=== PATIENT | male | born 1950 | race American Indian/Alaskan Native ===

== ENCOUNTER 2025-02-04 15:31 | Emergency (ER) | payer MEDICARE, OTHER, SELFPAY ==
[2025-02-04] VITALS (15 sets, daily range): BP systolic 121–181; BP diastolic 57–80; PULSE 74–94; RESP 16–18; TEMP 36.8; O2SAT 92–99; BMI 38.4
--- NOTE | 2025-02-04 15:58 | EKG_ITS ---
[place] [id number] [place] [id number] Test Date: 2025-02-04 Pat Name: Mauricio Montgomery Department: [facility] Room: Gender: Male Horticultural Manager: ZULMA : 1950 Requested By: Order Number: [id number] Reading MD: Edson Rubin Measurements Intervals [place] Rate: 83 P: 10 TX: 144 QRS: -6 QRSD: 80 T: -3 QT: 356 QTc: 418 Interpretive Statements Sinus rhythm with premature atrial complexes Electronically Signed On 02-06-2025 17:25:58 PDT by Edson Rubin
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
[2025-02-04] MEDS: HYDROCODONE/ACET 5/325 TABLET 1 TAB PO (18:14)
[2025-02-04 20:00] LABS: Add Manual Diff / Slide Review NO; Basophils Absolute Auto 100 /uL (0-100); Basophils Percent Auto 0.6 % (0-2); Eosinophils Absolute Auto 100 /uL (0-450); Eosinophils Percent Auto 1.4 % (2-4); Hematocrit 39.4 % (41-53); Hemoglobin 13.1 g/dL (13.5-17.5); Lymphocytes Absolute Auto 700 /uL (1100-4500); Lymphocytes Percent Auto 8.7 % (25-40); Mean Corpuscular HGB Conc 33.3 % (30-36); Mean Corpuscular Hemoglobin 28.7 PG (26-34); Mean Corpuscular Volume 86.1 fL (80-100); Monocytes Absolute Auto 500 /uL (0-900); Monocytes Percent Auto 6.7 % (3-14); Neutrophils Absolute Auto 6500 /uL (1500-7000); Neutrophils Percent Auto 82.6 % (50-75); Platelet Count 308 X10^3/uL (150-400); Red Blood Cell Count 4.58 X10^6/uL (4.5-5.9); Red Cell Distribution Width 15.3 % (11.6-14.8); White Blood Cell Count 7.9 X10^3/uL (4.5-11.0)
[2025-02-04 20:08] LABS: Prothrombin Time 11.4 SECONDS (9.4-12.5)
[2025-02-04 20:10] LABS: PTT Partial Thromboplastin Tim 38 SECONDS (25.1-36.5)
--- NOTE | 2025-02-04 20:10 | PC.NURSE ---
This TIP PUNCHER asked the patient if they are able to do an ambulation trial. Patient states they refuse due 10/10 pain the right arm and their legs even with a walking aide. Nurse had been notified.
[2025-02-04 20:11] LABS: Lactate (Lactic Acid) 0.9 mmol/L (0.7-2.1)
[2025-02-04 20:12] LABS: Alanine Aminotransferase 30 IU/L (<50); Albumin 4.4 g/dL (3.5-5.0); Albumin Globulin Ratio 1.5 (1.0-2.8); Alkaline Phosphatase 69 U/L (38-126); Aspartate Aminotransferase 55 IU/L (17-59); BUN Creatinine Ratio 14.2 (6-22); Bilirubin Total 0.9 mg/dL (0.2-1.3); Blood Urea Nitrogen 18 mg/dL (9-20); Calcium 8.7 mg/dL (8.4-10.2); Carbon Dioxide 23 mmol/L (22-32); Chloride 110 mmol/L (98-107); Estimated Glomerular Filt Rate > 60 mL/min (>60); Ethanol (ETOH) < 10 mg/dL (<10); Glucose 103 mg/dL (70-99); HEMOLYSIS < 15 (0-50); Lipase 76 U/L (23-300); Potassium 4.2 mmol/L (3.4-5.1); Sodium 141 mmol/L (137-145); Total Protein 7.4 g/dL (6.3-8.2)
--- NOTE | 2025-02-04 20:39 | DI.CT.S_ITS ---
PROCEDURE: CT ANGIO LE RT INDICATIONS: XR neg, cannot walk, right femur CT angio, eval for bleeding TECHNIQUE: After the administration of intravenous contrast, 2.5 mm sections acquired from T12 to the feet, with optional delayed image acquisition from the knees to the feet. 3-dimensional maximum intensity projection (MIP) coronal and sagittal reformats, and/or 3-dimensional volume rendering reformatting was then performed. For radiation dose reduction, the following was used: automated exposure control. COMPARISON: None. FINDINGS: Image quality: Diagnostic Bones: Mild hip degenerative changes. No acute fracture of the right hemithorax where visualized. The knee joint appears congruent. There is no acute fracture of the femoral shaft or tibial shaft. No fibular fracture identified. Degenerative changes also seen at the ankle. Nonaggressive appearing lucencies in the calcaneus, possibly intraosseous lipomas, but indeterminate on CT Suspect calcaneal enthesopathy Soft tissues: Suspect intramuscular hematoma along the vastus lateralis, with internal heterogeneity, with moderate degree of surrounding fluid outside the fascial layers. No definite arterial contrast blush. Vascular: No high-grade stenosis or occlusion of the thigh and calf vessels. Two vessel runoff is seen at the level of the ankle. IMPRESSION: Suspect hematoma along the vastus lateralis and surrounding moderate edema superficial to the muscle layer There is no arterial blush on this single-phase study, although there is internal heterogeneity that is still suggestive of recent bleeding. Consider future imaging surveillance to assess for resolution. No acute fracture or dislocation of the right lower extremity. Dictated by: Frandy Cedillo M.D. on 02/04/2025 at 21:15 Approved by: Frandy Cedillo M.D. on 02/04/2025 at 21:21
[2025-02-04] MEDS: HYDROMORPHONE 0.5 MG INJ IV (20:47)
[2025-02-04 21:38] LABS: UR Morphine/Opiate cutoff 300 Negative (Negative); Ur Creatinine Normal (Normal); Ur Specific Gravity Normal (Normal); Urine Amphetamines Negative (Negative); Urine Barbiturates Negative (Negative); Urine Benzodiazepines Negative (Negative); Urine Cocaine Negative (Negative); Urine MDMA Negative (Negative); Urine Methadone Negative (Negative); Urine Methamphetamines Negative (Negative); Urine Oxycodone Negative (Negative); Urine Phencyclidine Negative (Negative); Urine Tetrahydrocannabinol Negative (Negative); Urine Tricyclic Antidepressant Negative (Negative); Urine pH Normal (Normal)
[2025-02-04] MEDS: HYDROCODONE/ACET 5/325 PREPACK 1 BOTTLE MISC (22:09)
== END 2025-02-04 22:32 | disposition home or self-care (01) ==
PROVIDERS: Emergency Medicine; Emergency Provider Emergency Medicine
DX: S70.11XA Contusion of right thigh, initial encounter (principal); S86.911A Strain of unspecified muscle(s) and tendon(s) at lower leg level, right leg, initial encounter; M79.601 Pain in right arm; R53.1 Weakness; R25.2 Cramp and spasm; V90.8 Drowning and submersion due to other accident to watercraft
CPT/HCPCS: 70450; 71045; 72125; 72170; 73090; 73552; 73560; 73706; 80053; 80305; 80320; 83605; 83690; 85025; 85610; 85730; 93005; 96374; 99284; J1171; Q9967